=== PATIENT | female | born 1985 | race Caucasian/White ===

== ENCOUNTER 2016-10-01 11:04 | Day surgery (SDC) | payer OTHER ==
[2016-10-01] MEDS ORDERED: CARBOXYMETHYLCELLULOSE SOD 0.5% 0.4 ML DROPERETTE ONE (12:09)
[2016-10-01] MEDS ORDERED: FENTANYL CITRATE INJ/PF 100 MCG/2 ML AMPUL ONE (12:09)
[2016-10-01] MEDS ORDERED: MIDAZOLAM 2 MG/2 ML INJ ONE (12:09)
[2016-10-01] MEDS ORDERED: PROPOFOL INJ 200 MG/20 ML VIAL IV ONE (12:10)
[2016-10-01] MEDS ORDERED: DEXAMETHASONE SOD PHOS INJ 10 MG/1 ML VIAL ONE (12:10)
[2016-10-01] MEDS ORDERED: ONDANSETRON HCL INJ/PF 4 MG/2 ML SDV ONE (12:10)
[2016-10-01] MEDS ORDERED: ROCURONIUM BROMIDE INJ 50 MG/5 ML VIAL IV ONE (12:11)
[2016-10-01] MEDS ORDERED: SUCCINYLCHOLINE CHLORIDE INJ 200 MG/10 ML VIAL ONE (12:11)
[2016-10-01] MEDS ORDERED: OXYMETAZOLINE HCL 0.05% NASAL SPRAY 15 ML BOTTLE ONE (12:17)
[2016-10-01] MEDS: LIDOCAINE 1%/EPINEPHRINE INJ 20 ML VIAL ONE ×2 (13:05→14:15)
[2016-10-01] MEDS ORDERED: OXYCODONE-ACETAMINOPHEN 5-325 MG TABLET ONE (15:11)
[2016-10-01] MEDS ORDERED: PROMETHAZINE HCL INJ 25 MG/1 ML VIAL ONE (15:35)
--- NOTE | 2016-10-01 16:28 | [facility] OPERATIVE REPORT E ---
[facility] NAME: QUINCY PEREIRA AGE: 30Y DATE OF SURGERY: 10/01/2016 ROOM: PREOPERATIVE DIAGNOSES: 1. Left nasal septum deviation. 2. Bilateral inferior turbinate hypertrophy. POSTOPERATIVE DIAGNOSES: 1. Left nasal septum deviation. 2. Bilateral inferior turbinate hypertrophy. PROCEDURES: 1. Septoplasty. 2. Bilateral submucous reduction of the inferior turbinates. 3. Bilateral therapeutic outfractures of the inferior turbinates. SURGEON: SHELIA CASTREJON M.D. ANESTHESIA: General endotracheal. ESTIMATED BLOOD LOSS: Thirty mL. COMPLICATIONS: None. INTRAOPERATIVE FINDINGS: 1. Broad left-sided nasal septal deviation with a large maxillary crest spur that indented the left inferior turbinate. 2. Right greater than left inferior turbinate hypertrophy. INDICATIONS FOR PROCEDURE: A 30-year-old male with a longstanding history of bilateral alternating nasal obstruction with a thick left-sided obstructive component as well. She has tried nasal steroid sprays for years now without any significant relief. Endoscopic and physical examination findings were consistent with our findings above. PROCEDURE IN DETAIL: The patient was met in the preoperative holding area. All questions were answered and consent was verified. She was then brought back to the operating room and placed supine on the operating room table and general endotracheal anesthesia was induced without difficulty. The nasal cavity was decongested with oxymetazoline and 1% lidocaine with 1:100,000 epinephrine was infiltrated on both sides of the nasal septum and the face of the inferior turbinates. She was prepped and draped in the standard fashion. A preoperative time-out was performed. A right-sided hemitransfixion incision was carried out and the caudal edge of the nasal septum was identified and bilateral submucoperichondrial flaps were elevated with cartilaginous and bony septum. A window was created by incising the cartilaginous septum 1 cm posterior to the caudal edge and excising a rectangular piece of septal cartilage using a swivel knife. This allowed me to isolate the deviated aspects of mostly vomer and maxillary crest on the left side. The vomer deviation extended fairly posteriorly past midlevel of the middle turbinate. These were isolated and resected mostly with bony rongeurs and an osteotome was used to complete the maxillary crest spur resection. An unopposed left-sided mucosal rent did occur. The right-sided mucoperichondrial flap remained intact throughout the duration of the procedure. I noted that the excision of the maxillary crest spurs did cause dislocation of the inferior attachment to the nasal spine. This was reconstituted with a PDS mattress suture and a small dorsal septum graft was fashioned from some of the excised cartilage and replaced precisely at the caudal edge of the septum for improved tip support. The remainder of the resected septal cartilage was morselized and replaced between the flaps, covering the left-sided mucosal tear. The hemitransfixion incision was then closed with 4-0 Chromic suture. A single septum to columellar suture was placed superior for further stability. The septal flaps were then reopposed with a quilting stitch of fast gut suture. I then turned my attention to the nasal turbinates, which were incised at the anterior aspect. A submucosal tunnel was dissected over the turbinate bone and a 2.9 mm turbinate microdebrider blade was then used to carry out a submucous soft tissue resection from cranial to caudal. Turbinate bones were then outfractured with a [place] elevator. The nasal cavity and nasopharynx were suctioned and Melgar splints were placed on each side of the nasal cavity and secured anteriorly with Prolene. She was turned over to the Anesthesia team for reversal and extubation. She tolerated the procedure well. DICTATING PHYSICIAN: SHELIA CASTREJON M.D. [id number] PHY#: [id number] ID: [id number] JOB#: [id number] ACCT: [id number] cc:SHELIA CASTREJON M.D. >
== END 2016-10-01 16:32 | disposition home or self-care (01) ==
LOC: SC 11:04
PROVIDERS: ATTEND Otolaryngology
PROC: 09BM4ZZ Excision of Nasal Septum, Percutaneous Endoscopic Approach (ICD-10-PCS; 2016-10-01)
PROC: 09TL8ZZ Resection of Nasal Turbinate, Via Natural or Artificial Opening Endoscopic (ICD-10-PCS; principal; 2016-10-01 12:30)
DX: J34.2 Deviated nasal septum (principal); J34.3 Hypertrophy of nasal turbinates; Z88.0 Allergy status to penicillin
CPT/HCPCS: 30140; 30520; J2250; J3490 ×4; J3010; J2550; J0330; J2405; J2704; J1100; 160